=== PATIENT | male | born 1995 | race Caucasian/White ===

== ENCOUNTER 2020-06-16 18:04 | Emergency (ER) | payer MEDICAID ==
[~2020-06-16] VITALS: Ht 182.9 cm; Wt 113.4 kg
--- NOTE | 2020-06-16 18:08 | NUR ---
PT TAKEN TO BED 06 VIA W/C.
[2020-06-16 18:12] VITALS: BP 183/91
--- NOTE | 2020-06-16 18:25 | NUR ---
PT PLACED IN CERVICAL COLLAR PER ERMD ORDERS
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
[2020-06-16] MEDS ORDERED: MORPHINE SULFATE 2 MG/ML SYR ONE (18:32)
--- NOTE | 2020-06-16 18:38 | NUR ---
REPORT GIVEN TO NAVA SHELTON AT [facility].
--- NOTE | 2020-06-16 18:39 | NUR ---
[facility] ARRIVED FOR TRANSFER.
[2020-06-16] MEDS: MORPHINE SULFATE 2 MG/ML SYR IVP ONE ×2 (18:42→18:49)
[2020-06-16 18:55] VITALS: BP 183/91
--- NOTE | 2020-06-16 18:55 | NUR ---
Patient to be transferred to [facility]. Is being transferred due to higher level of care. Receiving facility has accepting physician and available space. ER physician has signed transfer form. Patient or responsible constitution party has agreed to transfer and signed form. Patient belongings inventoried and will be sent with patient. Copy of nursing notes, lab reports, EKG, Physicians Orders and X-rays to be sent with patient. Report called to Alexandr SHELTON at receiving facility. [facility] service has been called for transfer. ETA is 30.
== END 2020-06-16 18:55 | disposition home or self-care (01) ==
LOC: MED 18:04
DX: S50.311A Abrasion of right elbow, initial encounter (principal); S30.811A Abrasion of abdominal wall, initial encounter; R41.82 Altered mental status, unspecified; M79.604 Pain in right leg; M25.511 Pain in right shoulder; M79.10 Myalgia, unspecified site; V49.9XXA Car occupant (driver) (passenger) injured in unspecified traffic accident, initial encounter; Y93.89 Activity, other specified; Y92.89 Other specified places as the place of occurrence of the external cause; Y99.8 Other external cause status
CPT/HCPCS: 96374; 99285; J2270